=== PATIENT | male | born 1965 | race Caucasian/White ===

== ENCOUNTER → 2018-10-14 | Day surgery (SDC) | payer BC ==
[~2018-10-14] MED LIST: Propofol 200 MG/20 ML SDV IV ONE
[2018-10-14] MEDS: Lactated Ringers 1,000 ML IV SCH (12:06)
--- NOTE | 2018-10-17 09:02 | OR ---
CCDATE OF OPERATION: 10/14/2018 PREOPERATIVE DIAGNOSIS: SCREENING COLONOSCOPY. POSTOPERATIVE DIAGNOSIS: SCREENING COLONOSCOPY. SURGEON: Lio Jay MD PROCEDURE: FULL-LENGTH SCREENING COLONOSCOPY. ANESTHESIA: MAC via BROKE BEATER. COMPLICATIONS: None. SPECIMEN: None. FINDINGS: Normal full-length colonoscopy. RECOMMENDATIONS: Followup colonoscopy every 10 years. INDICATIONS: The patient was sent for a screening colonoscopy due to his age. DESCRIPTION OF PROCEDURE: The patient was prepped and draped, placed in the left lateral decubitus position. A lubricated Olympus colonoscope was inserted and easily advanced to the cecum. Direct visualization of the ileocecal valve was accomplished. It was difficult to get deep into the cecal pouch and visualize the appendiceal orifice region, but we could see down into the pouch and no gross abnormalities were seen. Upon withdrawal, throughout the length of the colon, I could find no signs of polyps, mass, ulceration, or bleeding sites. No vascular abnormalities or signs of colitis. Rectal vault was benign. Retroflexion showed no perianal lesions. Air was suctioned and scope removed without complication. BERNADINE/ESTHER /[id number]
== END ==
LOC: CC.SDS 11:41
PROVIDERS: ATTEND Family Medicine
DX: Z12.11 Encounter for screening for malignant neoplasm of colon (principal)
CPT/HCPCS: G0121; J2704; J7120